=== PATIENT | female | born 1970 | race Caucasian/White ===

== ENCOUNTER 2020-02-03 13:25 | Outpatient (CLI) | payer SELFPAY ==
--- NOTE | 2020-02-03 13:49 | US_ITS ---
WS: [id number] Pelvic ultrasound, 02/03/2020 Clinical Data: POST MENOPAUSAL BLEED Comparison: None. Findings: The uterus has been removed. The ovaries were not imaged. No adnexal or cul-de-sac abnormalities were seen. US/US pelvic with transvaginal Impression: 1. Status post hysterectomy. 2. No visualization of the ovaries.
== END 2020-02-03 13:26 | disposition home or self-care (01) ==
LOC: RAD 13:27
PROVIDERS: Visit Provider Nurse Practitioner Family
DX: N95.0 Postmenopausal bleeding (principal); Z90.710 Acquired absence of both cervix and uterus
CPT/HCPCS: 76830; 76856

== ENCOUNTER 2020-03-15 10:54 | Outpatient (CLI) | payer SELFPAY ==
--- NOTE | 2020-03-15 11:00 | MM_ITS ---
WS: [id number] BILATERAL DIGITAL SCREENING MAMMOGRAPHY WITH CAD CLINICAL INFORMATION: SCREENING HISTORY: Screening mammogram. No current complaints. COMPARISON: February 27, 2012 TECHNIQUE: Bilateral CC and MLO views. FINDINGS: Scattered fibroglandular densities bilaterally. No suspicious focal mass, asymmetry, calcifications, or architectural distortion. No evidence of malignancy. MM/[id number] IMPRESSION: BI-RADS: 1-Negative FOLLOW UP: 1 Year Follow-up Recommend return to annual screening mammography.
== END 2020-03-15 10:55 | disposition home or self-care (01) ==
LOC: RADSHAW 10:59
PROVIDERS: PCP Family Medicine; Visit Provider Nurse Practitioner Family
DX: Z12.31 Encounter for screening mammogram for malignant neoplasm of breast (principal)
CPT/HCPCS: 77067

== ENCOUNTER 2021-10-16 08:00 | Outpatient (CLI) | payer SELFPAY ==
--- NOTE | 2021-10-16 08:11 | MM_ITS ---
WS: [id number] BILATERAL SCREENING DIGITAL BREAST TOMOSYNTHESIS MAMMOGRAM WITH CAD HISTORY: SCREENING COMPARISON: 03/15/2020, 02/27/2012 Bilateral CC and MLO views with tomosynthesis and synthetic mammography submitted. Computer aided det ection analyzed. Breast composition: There are scattered areas of fibroglandular density. No suspicious masses, microc alcifications or architectural distortion. Benign lymph node upper outer quadrant LEFT breast. MM/[place] [id number] IMPRESSION: BI-RADS: 2-Benign FOLLOW UP: 1 Year Follow-up
--- NOTE | 2021-10-16 08:11 | US_ITS ---
WS: [id number] ULTRASOUND SOFT TISSUES RIGHT axilla. HISTORY: AXILLARY MASS COMPARISON: None available. TECHNIQUE: 2-D and color Doppler imaging is submitted. RIGHT axillary palpable area demonstrates no abnormality by ultrasound. There is no axillary mass. Th ere are a few small benign lymph nodes in the axilla. US/US soft tissue/extremity [id number] IMPRESSION: Negative ultrasound RIGHT axilla. No discrete mass identified.
== END 2021-10-16 08:01 | disposition home or self-care (01) ==
LOC: RAD 08:05
PROVIDERS: PCP Family Medicine; Visit Provider Nurse Practitioner Family
DX: R22.9 Localized swelling, mass and lump, unspecified (principal); Z12.31 Encounter for screening mammogram for malignant neoplasm of breast
CPT/HCPCS: 76882; 77063; 77067

== ENCOUNTER → 2022-11-04 08:38 | Outpatient (BNVA) | payer SELFPAY | PROVIDERS: PCP Family Medicine; Visit Provider Family Medicine | DX: Z01.89 Encounter for other specified special examinations (principal) ==

== ENCOUNTER 2024-11-28 11:37 | Outpatient (CLI) | payer SELFPAY ==
--- NOTE | 2024-11-28 11:48 | MM_ITS ---
WS: [id number] VIEWS: MLO and CC views both breasts. 3D digital tomosynthesis is also included in this exam. Comparison made with prior exam of 02/27/2012, 03/15/2020, 10/16/2021.. Findings: There are scattered areas of fibroglandular density. No sign of suspicious mass, tumor calcification or architectural distortion. MM/MM scr BI tomosynthesis [id number] Impression: BI-RADS: 2 - Benign FOLLOW-UP: 1 Year Follow-up This mammogram was also analyzed by the Computer Aided Detection System [employer].
== END 2024-11-28 11:38 | disposition home or self-care (01) ==
PROVIDERS: PCP Family Medicine; Visit Provider Family Medicine
DX: Z12.31 Encounter for screening mammogram for malignant neoplasm of breast (principal); R92.323 Mammographic fibroglandular density, bilateral breasts
CPT/HCPCS: 77063; 77067